=== PATIENT | female | born 1990 | race Caucasian/White ===

== ENCOUNTER 2024-09-24 11:30 | Outpatient (RCR) | payer OTHER, SELFPAY ==
--- NOTE | 2024-08-30 16:00 | OT.OP.EVAL ---
Visit Care Team Role Provider Type Serge Lewis Attending Provider Non-Staff Family Provider Primary Care Provider Referring Provider Specialty: Medical Address: [address] [place] [address], [place], [address] Email: Occupational Therapy Initial Evaluation OT Outpatient Adult Evaluation Start: 08/30/24 15:45 Freq: Status: Active Protocol: Document 08/30/24 15:45 AMS (Rec: 08/30/24 16:08 AMS [id number]) General Information - Adult Visit Number 11/21 Plan of Care Dates 08/30/24 - 10/11/24 Insurance Information ; *Auth x 12 visits; PCP Serge Lewis MD Visit Start Time 13:00 Visit Stop Time 13:40 Treatment Setting Outpatient Care Note Type Initial Evaluation Identification Confirmed Yes Identification Confirmed By Self Goals Treatment Initiated HEP. Custodial Goals 1. Shauna will be modified independent with home exercise program using written/visual instructions as needed. 2. Shauna will present with increased ability to engage in meaningful activities in the home and work environments with active engagement of the R hand; this will be evidenced by the followina. Shauna will obtain a QuickDASH UE Outcome Measure Score of 25.00 or less. 2b. Shauna will obtain a QuickDASH UE Work Module Score of 25.00 or less. 3. Shauna will present with improved R active wrist range of motion which will support her ability to engage in meaningful activities in the home and work environments: 3a. 0-70 degrees active R wrist extension. Assessment/Plan Treatment Assessment Shauna is 34 y.o.; she is R hand dominant; she was referred by PCP to OT d/t wrist pain w/ symptoms consistent w/ CTS. 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 Medical history is significant for back, jaw, and neck pain and headaches. Whole body Pain Assessment Grid was completed; she indicated 7 out of 10 on the pain scale relative to the dorsal R arm. On Hand/Wrist Pain Assessment Grid, she indicated 6 out of 10 on the pain scale relative to dorsal L hand, 5 out of 10 relative to dorsal 2nd and 3rd digits and 7 out of 10 relative to dorsal R wrist. QuickDASH UE Outcome Measure Score = 59.09; QuickDASH Work Module Score ( IT support/tech) = 56.25. Active ROM Goniometer measurements = 0-55 R wrist flex vs 0-55 L wrist flex; 0- 60 R wrist ext vs 0-75 L wrist ext; 0-[address] ( shooting pain proximally) vs 0 -[address]; 0-30 R wrist UD vs 0-30 L wrist UD. (+) opposition to each digit pad bilaterally. 0-50 R radial thumb abd vs 0-55 L radial thumb abd. 0-60 bilateral palmar thumb abduction. (+) R thumb add tightness compared to L thumb adductor. (-) intrinsic tightness bilaterally. Report of R palm 'going numb' w/ reverse Phalen 's Test; denied any numbness of digits; no symptoms of L hand. MMT/Wrist Strength Testing = 5 /5 R wrist flex vs 4/5 L wrist flex; 5/5 R wrist ext vs 5/5 L wrist ext; 5/[address] vs 5/[address]; 5/5 R wrist UD vs 5/5 L wrist UD. Dynamometer II Strength Testing Results with elbow in 90 degrees Flexion = R senior principal 35 .0# of force (compared to same -aged 30-34 y.o. female peers 78.7 +/- 19.2# of force) versus L senior principal 47.0# of force ( compared to same-aged 30-34 y. o. female peers 68.0 +/- 17.7# of force). Lateral Thomas Pinch = R lateral pinch 5.5# of force (compared to same-aged 30-34 y.o. female peers 18.7 + /- 3.0# of force) versus L lateral pinch 9.0# of force ( compared to same-aged 30-34 y. o. female peers 17.8 +/- 3.6# of force). Tip Pinch = R tip pinch 9.0# of force (compared to same-aged 30-34 y.o. female peers 12.6 +/- 3.0# of force) versus L tip pinch 9.5# of force (compared to same-aged 30-34 y.o. female peers 11.7 + /- 2.8# of force). 3-Jaw Pinch = R 3-jaw pinch 19.3# of force (compared to same-aged 30-34 y.o. female peers 19.3 + /- 5.0# of force) versus L 3- jaw pinch 12.5# of force ( compared to same-aged 30-34 y. o. female peers 18.1 +/- 4.8# of force). Outpatient OT rec to provide HEP, joint protection education. Home Exercise Program 08/30/24 = Instructed in bilateral self-myofascial thumb adductor release; x 20- 30 sec hold -> switch. Complete daily and/or as needed. Instructed in wrist/ digit extensor stretch w/ elbow extended and wrist/digit flexor stretch w/ elbow extended; x 20-30 sec hold -> switch. Complete daily and/or as needed. (Alternative wrist/ digit flexor stretch w/ use of table edge or wall). Also instructed in carpal ligament stretch at wall; x 20-30 sec hold. Length of treatment (weeks) 6 Plan of Care Start Date 08/30/24 Plan of Care End Date 10/11/24 Treatment Frequency Once a Week Therapeutic Contents Active Range of Motion, Adaptive Equipment Education, Functional Activities,Home Exercise Program,Joint Protection,Manual Therapy, Education,Neurodevelopment Treatment,Neuromuscular Re- Education,Self-Care,Stretching /Flexibility Activities, Therapeutic Activities, Therapeutic Exercises, Modalities Additional Areas of Treatment Heat/Ice/Contrast Baths/ Paraffin Bath
--- NOTE | 2024-09-15 12:32 | OT.OP.TRT ---
Visit Care Team Role Provider Type Serge Lewis Attending Provider Non-Staff Family Provider Primary Care Provider Referring Provider Specialty: Medical Address: [address] [place] [address], [place], [address] Email: Occupational Therapy Treatment Note OT Outpatient Treatment Note - Adult Start: 08/30/24 15:45 Freq: Status: Active Protocol: Document 09/15/24 12:22 AMS (Rec: 09/15/24 12:32 AMS [id number]) OT Outpatient Adult Treatment Note Visit Information Visit Number 12/22 Plan of Care Dates 08/30/24 - 10/11/24 Insurance Information ; *Auth x 12 visits; PCP Serge Lewis MD Setting Treatment Setting Outpatient Care Visit Type Note Type Treatment Note General Information General Information Shauna is 34 y.o.; she is R hand dominant; she was referred by PCP to OT d/t wrist pain w/ symptoms consistent w/ CTS. 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 Medical history is significant for back, jaw, and neck pain and headaches. Whole body Pain Assessment Grid was completed; she indicated 7 out of 10 on the pain scale relative to the dorsal R arm. On Hand/Wrist Pain Assessment Grid, she indicated 6 out of 10 on the pain scale relative to dorsal L hand, 5 out of 10 relative to dorsal 2nd and 3rd digits and 7 out of 10 relative to dorsal R wrist. QuickDASH UE Outcome Measure Score = 59.09; QuickDASH Work Module Score ( IT support/tech) = 56.25. - Subjective Identification Type Name - Objective Objective Measurements Please refer to below for progress towards meeting established OT goals: Hydraulic Press Tender Goals 1. Shauna will be modified independent with home exercise program using written/visual instructions as needed. 2. Shauna will present with increased ability to engage in meaningful activities in the home and work environments with active engagement of the R hand; this will be evidenced by the followina. Shauna will obtain a QuickDASH UE Outcome Measure Score of 25.00 or less. 2b. Shauna will obtain a QuickDASH UE Work Module Score of 25.00 or less. 3. Shauna will present with improved R active wrist range of motion which will support her ability to engage in meaningful activities in the home and work environments: 3a. 0-70 degrees active R wrist extension. - Exercises 3 Descriptor Median nerve glides. Bilateral . x 2. 5 sec hold each. 2 Descriptor Wrist ROM. Finger ROM. Passive wrist flexion. Elbow 90 degrees flexion. Bilateral. 20 sec hold. Passive wrist/digit ext. Elbow 90 degrees flexion. Bilateral . 20 sec hold. Passive wrist/digit ext. Elbows 90 degrees flexion. Modified. Forearm pronation. Forearm supination. 20 sec hold. Tendon glides. x 5 cycles. Bilateral. 1 Descriptor UEB. x 10 minutes. Seated. Height #2. - Assessment Assessment of Improvement Upgraded home exercise program ; see below. Shauna is going to follow-up in re: scheduling of nerve conduction study. Shauna is also going to follow-up in re: night wrist braces. Outpatient OT rec to provide HEP, joint protection education. Home Exercise Program 09/15/24 = Instructed in modified wrist/digit extensor stretch; x 20-30 sec hold w/ pronation <-> supination. Instructed in tendon glides. x 5 cycles. Complete daily and/ or as needed. Instructed in median nerve glide; hold x 5 sec; repeat 2-3 times per day and/or as needed. 08/30/24 = Instructed in bilateral self-myofascial thumb adductor release; x 20- 30 sec hold -> switch. Complete daily and/or as needed. Instructed in wrist/ digit extensor stretch w/ elbow extended and wrist/digit flexor stretch w/ elbow extended; x 20-30 sec hold -> switch. Complete daily and/or as needed. (Alternative wrist/ digit flexor stretch w/ use of table edge or wall). Also instructed in carpal ligament stretch at wall; x 20-30 sec hold. - Plan Therapy Recommendations Advance per Rehabilitation Protocol
--- NOTE | 2024-09-24 12:26 | OT.OP.TRT ---
Visit Care Team Role Provider Type Serge Lewis Attending Provider Non-Staff Family Provider Primary Care Provider Referring Provider Specialty: Medical Address: [address] [place] [address], [place], [address] Email: Occupational Therapy Treatment Note OT Outpatient Treatment Note - Adult Start: 08/30/24 15:45 Freq: Status: Active Protocol: Document 09/24/24 12:13 AMS (Rec: 09/24/24 12:25 AMS [id number]) OT Outpatient Adult Treatment Note Session Time Visit Start Time 11:30 Visit Stop Time 12:10 Visit Information Visit Number 01/19 Plan of Care Dates 08/30/24 - 10/11/24 Insurance Information ; *Auth x 12 visits; PCP Serge Lewis MD Setting Treatment Setting Outpatient Care Visit Type Note Type Treatment Note General Information General Information Shauna is 34 y.o.; she is R hand dominant; she was referred by PCP to OT d/t wrist pain w/ symptoms consistent w/ CTS. 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 Medical history is significant for back, jaw, and neck pain and headaches. Whole body Pain Assessment Grid was completed; she indicated 7 out of 10 on the pain scale relative to the dorsal R arm. On Hand/Wrist Pain Assessment Grid, she indicated 6 out of 10 on the pain scale relative to dorsal L hand, 5 out of 10 relative to dorsal 2nd and 3rd digits and 7 out of 10 relative to dorsal R wrist. QuickDASH UE Outcome Measure Score = 59.09; QuickDASH Work Module Score ( IT support/tech) = 56.25. - Subjective Identification Type Name Joe Has not had EMG; will be re- scheduling OT appointment that is scheduled on the d/ scheduling conflict; rec re- scheduling this appointment post-EMG. Shauna reports that she has modified push-ups at home; she is completing 5- 6 at floor level and then transitioning to incline push- ups. Shauna reports modifying exercises at the gym w/ support of instructor. Patient/Caregiver Compliance with Home Good Exercise Program - Objective Objective Measurements Please refer to below for progress towards meeting established OT goals: Jewelry Maker Goals 1. Shauna will be modified independent with home exercise program using written/visual instructions as needed. 2. Shauna will present with increased ability to engage in meaningful activities in the home and work environments with active engagement of the R hand; this will be evidenced by the followina. Shauna will obtain a QuickDASH UE Outcome Measure Score of 25.00 or less. 2b. Shauna will obtain a QuickDASH UE Work Module Score of 25.00 or less. 3. Shauna will present with improved R active wrist range of motion which will support her ability to engage in meaningful activities in the home and work environments: 3a. 0-70 degrees active R wrist extension. - Exercises 3 Descriptor Median nerve glides. Bilateral . x 2. 5 sec hold each. 2 Descriptor Wrist ROM. Finger ROM. Passive wrist flexion. Elbow 90 degrees flexion. Bilateral. 20 sec hold. Passive wrist/digit ext. Elbow 90 degrees flexion. Bilateral . 20 sec hold. Passive wrist/digit ext. Elbows 90 degrees flexion. Modified. Forearm pronation. Forearm supination. 20 sec hold. Tendon glides. x 5 cycles. Bilateral. 1 Descriptor UEB. x 15 minutes. Seated. Height #4. - Assessment Assessment of Improvement Shauna has modified push-up exercise and is completing 5-6 at floor level and then transitioning to inclined surface; reviewed option to complete wall push-ups. Shauna is actively modifying exercise program w/ support of information technology instructor (as needed). She is reporting difficulties opening jars and/or water bottles; she has previously used dycem and/or similar AE to assist w/ opening such items; is currently looking for a replacement. Instructed in alternative passive wrist/ digit ext stretch at wall w/ forearm pronation <-> supination w/ bilateral elbow extension. Rec scheduling follow-up appt post-EMG given that symptoms have not changed w/ median nerve glide, tendon glides, passive range of motion exercises. Shauna is going to follow-up in re: scheduling of nerve conduction study. Shauna is also going to follow-up in re: night wrist braces. Outpatient OT rec to provide HEP, joint protection education. Home Exercise Program 09/24/24 = Instructed in passive wrist/digit extensor stretch in standing at wall w/ pronation <-> supination. This is an alt to other wrist/ digit extensor stretch w/ elbow 90 degrees flexion <-> fully extended. Rec hold 20-30 sec; repeat 1-2 times as needed. 09/15/24 = Instructed in modified wrist/digit extensor stretch bringing hands together at midline; x 20-30 sec hold w/ pronation <-> supination. Instructed in tendon glides. x 5 cycles. Complete daily and/or as needed. Instructed in median nerve glide; hold x 5 sec; repeat 2-3 times per day and/ or as needed. 08/30/24 = Instructed in bilateral self-myofascial thumb adductor release; x 20- 30 sec hold -> switch. Complete daily and/or as needed. Instructed in wrist/ digit extensor stretch w/ elbow extended and wrist/digit flexor stretch w/ elbow extended; x 20-30 sec hold -> switch. Complete daily and/or as needed. (Alternative wrist/ digit flexor stretch w/ use of table edge or wall). Also instructed in carpal ligament stretch at wall; x 20-30 sec hold. - Plan Therapy Recommendations Advance per Rehabilitation Protocol Additional Therapy Recommendations Dependent upon results of EMG
--- NOTE | 2024-11-01 12:48 | OT.OP.DC ---
Visit Care Team Role Provider Type Serge Lewis Attending Provider Non-Staff Family Provider Primary Care Provider Referring Provider Address: [address] [place] [address], [place], [address] Email: OT Outpatient OT Outpatient Adult Evaluation Start: 08/30/24 15:45 Freq: Status: Active Protocol: Document 08/30/24 15:45 AMS (Rec: 08/30/24 16:08 AMS [id number]) General Information - Adult Visit Information Visit Number 11/21 Plan of Care Dates 08/30/24 - 10/11/24 Insurance Information ; *Auth x 12 visits; PCP Serge Lewis MD Session Time Visit Start Time 13:00 Visit Stop Time 13:40 Setting Treatment Setting Outpatient Care Visit Type Note Type Initial Evaluation Identification Identification Confirmed Yes Identification Confirmed By Self Goals Treatment Treatment Initiated HEP. Fdc Goals Bookbinder Apprentice Goals 1. Shauna will be modified independent with home exercise program using written/visual instructions as needed. 2. Shauna will present with increased ability to engage in meaningful activities in the home and work environments with active engagement of the R hand; this will be evidenced by the followina. Shauna will obtain a QuickDASH UE Outcome Measure Score of 25.00 or less. 2b. Shauna will obtain a QuickDASH UE Work Module Score of 25.00 or less. 3. Shauna will present with improved R active wrist range of motion which will support her ability to engage in meaningful activities in the home and work environments: 3a. 0-70 degrees active R wrist extension. Assessment/Plan Assessment Treatment Assessment Shauna is 34 y.o.; she is R hand dominant; she was referred by PCP to OT d/t wrist pain w/ symptoms consistent w/ CTS. 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 Whole body Pain Assessment Grid was completed; she indicated 7 out of 10 on the pain scale relative to the dorsal R arm. On Hand/Wrist Pain Assessment Grid, she indicated 6 out of 10 on the pain scale relative to dorsal L hand, 5 out of 10 relative to dorsal 2nd and 3rd digits and 7 out of 10 relative to dorsal R wrist. QuickDASH UE Outcome Measure Score = 59.09; QuickDASH Work Module Score ( IT support/tech) = 56.25. Active ROM Goniometer measurements = 0-55 R wrist flex vs 0-55 L wrist flex; 0- 60 R wrist ext vs 0-75 L wrist ext; 0-[address] ( shooting pain proximally) vs 0 -[address]; 0-30 R wrist UD vs 0-30 L wrist UD. (+) opposition to each digit pad bilaterally. 0-50 R radial thumb abd vs 0-55 L radial thumb abd. 0-60 bilateral palmar thumb abduction. (+) R thumb add tightness compared to L thumb adductor. (-) intrinsic tightness bilaterally. Report of R palm 'going numb' w/ reverse Phalen 's Test; denied any numbness of digits; no symptoms of L hand. MMT/Wrist Strength Testing = 5 /5 R wrist flex vs 4/5 L wrist flex; 5/5 R wrist ext vs 5/5 L wrist ext; 5/[address] vs 5/[address]; 5/5 R wrist UD vs 5/5 L wrist UD. Dynamometer II Strength Testing Results with elbow in 90 degrees Flexion = R filtration plant operator 35 .0# of force (compared to same -aged 30-34 y.o. female peers 78.7 +/- 19.2# of force) versus L filtration plant operator 47.0# of force ( compared to same-aged 30-34 y. o. female peers 68.0 +/- 17.7# of force). Lateral Thomas Pinch = R lateral pinch 5.5# of force (compared to same-aged 30-34 y.o. female peers 18.7 + /- 3.0# of force) versus L lateral pinch 9.0# of force ( compared to same-aged 30-34 y. o. female peers 17.8 +/- 3.6# of force). Tip Pinch = R tip pinch 9.0# of force (compared to same-aged 30-34 y.o. female peers 12.6 +/- 3.0# of force) versus L tip pinch 9.5# of force (compared to same-aged 30-34 y.o. female peers 11.7 + /- 2.8# of force). 3-Jaw Pinch = R 3-jaw pinch 19.3# of force (compared to same-aged 30-34 y.o. female peers 19.3 + /- 5.0# of force) versus L 3- jaw pinch 12.5# of force ( compared to same-aged 30-34 y. o. female peers 18.1 +/- 4.8# of force). Outpatient OT rec to provide HEP, joint protection education. Home Exercise Program 08/30/24 = Instructed in bilateral self-myofascial thumb adductor release; x 20- 30 sec hold -> switch. Complete daily and/or as needed. Instructed in wrist/ digit extensor stretch w/ elbow extended and wrist/digit flexor stretch w/ elbow extended; x 20-30 sec hold -> switch. Complete daily and/or as needed. (Alternative wrist/ digit flexor stretch w/ use of table edge or wall). Also instructed in carpal ligament stretch at wall; x 20-30 sec hold. Plan Length of treatment (weeks) 6 Plan of Care Start Date 08/30/24 Plan of Care End Date 10/11/24 Treatment Frequency Once a Week Therapeutic Contents Active Range of Motion, Adaptive Equipment Education, Functional Activities,Home Exercise Program,Joint Protection,Manual Therapy, Education,Neurodevelopment Treatment,Neuromuscular Re- Education,Self-Care,Stretching /Flexibility Activities, Therapeutic Activities, Therapeutic Exercises, Modalities Additional Areas of Treatment Heat/Ice/Contrast Baths/ Paraffin Bath Functional Wrist/Hand Scan Hand Side Sensory Assessment Sensory Profile2 OT Outpatient Treatment Note - Adult Start: 08/30/24 15:45 Freq: Status: Active Protocol: Document 11/01/24 12:46 AMS (Rec: 11/01/24 12:48 [facility] [id number]) OT Outpatient Adult Treatment Note Visit Information Visit Number 3 Plan of Care Dates 08/30/24 - 10/11/24 Insurance Information ; *Auth x 12 visits; PCP Serge Lewis MD Setting Treatment Setting Outpatient Care Visit Type Note Type Discharge Summary - Subjective Observations Shauna has not been seen in the outpatient setting by OT since 09/24/24 and outpatient OT POC on 10/11/24; thus, recommend d/c from outpatient OT and clinician to re-evaluate as deemed appropriate by PCP w/ receipt of new referral. - Objective Objective Measurements Please refer to below for progress towards meeting established OT goals: Bookbinder Apprentice Goals D/C ALL GOALS 11/01/24 1. Shauna will be modified independent with home exercise program using written/visual instructions as needed. 2. Shauna will present with increased ability to engage in meaningful activities in the home and work environments with active engagement of the R hand; this will be evidenced by the followina. Shauna will obtain a QuickDASH UE Outcome Measure Score of 25.00 or less. 2b. Shauna will obtain a QuickDASH UE Work Module Score of 25.00 or less. 3. Shauna will present with improved R active wrist range of motion which will support her ability to engage in meaningful activities in the home and work environments: 3a. 0-70 degrees active R wrist extension. - - Assessment Assessment of Improvement Shauna has not been seen in the outpatient setting by OT since 09/24/24 and outpatient OT POC on 10/11/24; thus, recommend d/c from outpatient OT and clinician to re-evaluate as deemed appropriate by PCP w/ receipt of new referral. - Plan Therapy Recommendations Discharge from Occupational Therapy
== END 2024-11-05 09:35 | disposition home or self-care (01) ==
LOC: OT 11:30
DX: M25.539 Pain in unspecified wrist (principal)
CPT/HCPCS: 97110; 97165

== ENCOUNTER → 2024-10-28 11:52 | Outpatient (CLI) | payer OTHER, SELFPAY | DX: R20.2 Paresthesia of skin (principal) | CPT/HCPCS: 95885; 95886; 95911 ==